=== PATIENT | female | born 1965 | race Caucasian/White ===

== ENCOUNTER 2019-11-14 09:30 | Inpatient (IN) | payer OTHER, SELFPAY ==
[~2019-11-14] VITALS: Ht 157.5 cm; Wt 90.9 kg
[2019-11-14] MEDS ORDERED: ceFAZolin SOD 2 GM in IV 1 EA IV ONE (09:45)
[2019-11-14] MEDS ORDERED: ONDANSETRON 4MG/2ML VIAL IV ONE ×2 (09:45→15:00)
[2019-11-14] MEDS ORDERED: BOOSTRIX/ADACEL VACCINE (DIPHTH/PERTUSS/ACELL/TETANUS) 0.5ML SYR IM ONE (09:45)
[2019-11-14] MEDS: MORPHINE 2 MG/ML 1ML VIAL (J2270) IV PRN ×2 (10:10→15:24)
[2019-11-14 10:26] LABS: BASO # 0.1 10^3/uL (0.0-0.2); BASO % 0.6 % (0.0-1.0); EOS # 0.1 10^3/uL (0.0-0.5); EOS % 1.2 % (0.0-3.0); HEMATOCRIT 42.4 % (36.0-47.0); HEMOGLOBIN 13.9 g/dl (12.0-15.5); LYMPH # 2.9 10^3/uL (1.5-5.0); LYMPH % 27.5 % (24.0-44.0); MEAN CORPUSCULAR HEMOGLOBIN 30.2 pg (27.0-33.0); MEAN CORPUSCULAR HGB CONC 32.8 g/dl (32.0-36.5); MONO # 0.5 10^3/uL (0.0-0.8); MONO % 4.3 % (0.0-5.0); NEUTROPHILS % 65.7 % (36.0-66.0); PLATELET COUNT, AUTOMATED 368 10^3/uL (150-450); RED BLOOD COUNT 4.61 10^6/uL (4.00-5.40); WHITE BLOOD COUNT 10.6 10^3/uL (4.0-10.0)
[2019-11-14] MEDS ORDERED: ISOVUE-370 76% 100ML VIAL As Ordered ONE (10:27)
[2019-11-14 10:36] LABS: INR 0.84; PROTHROMBIN TIME 11.7 SECONDS (12.5-14.3)
[2019-11-14 10:37] LABS: ALBUMIN 3.8 GM/DL (3.2-5.2); ALT/SGPT 27 U/L (12-78); AMYLASE 53 U/L (25-115); BILIRUBIN,DIRECT < 0.1 MG/DL (0.0-0.2); BILIRUBIN,TOTAL 0.2 MG/DL (0.2-1.0); LIPASE 110 U/L (73-393)
[2019-11-14 10:37] LABS: PARTIAL THROMBOPLASTIN TIME 23.5 SECONDS (24.2-38.5)
[2019-11-14 10:39] LABS: CK-MB VALUE MASS 1.9 NG/ML (<3.6); CPK CREATINE PHOSPHOKINASE 181 U/L (26-192); MB/CK RELATIVE INDEX 1.05 (< OR =4); TROPONIN I < 0.02 NG/ML (< 0.10)
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
[2019-11-14] MEDS ORDERED: SERT-138 PO (11:24)
[2019-11-14] MEDS ORDERED: METO50TA7 PO (11:24)
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
[2019-11-14] MEDS ORDERED: fentaNYL 100 MCG/2 ML INJECTION (J3010) As Ordered ONE (16:08)
[2019-11-14] MEDS ORDERED: MIDAZOLAM INJ 2MG/2ML VIAL (J2250 PER 1MG) As Ordered ONE (16:08)
[2019-11-14] MEDS ORDERED: dexameTHASONE 4 MG/ML 1ML VIAL (J1100 PER 1MG) As Ordered ONE (16:08)
[2019-11-14] MEDS ORDERED: ONDANSETRON 4MG/2ML VIAL As Ordered ONE (16:08)
[2019-11-14] MEDS ORDERED: propofoL 200 MG/20 ML VIAL As Ordered ONE (16:09)
[2019-11-14] MEDS ORDERED: LIDOCAINE 2% 100MG/5ML SDV (FOR ANES.) As Ordered ONE (16:09)
[2019-11-14] MEDS ORDERED: ceFAZolin 1GM VIAL (J0690 PER 500MG) As Ordered ONE ×2 (16:58→17:51)
[2019-11-14] MEDS ORDERED: METOCLOPRAMIDE INJ 10MG/2ML VIAL (J2765 PER 1) As Ordered ONE (17:03)
[2019-11-14] MEDS ORDERED: ceFAZolin 2 GM/D5W 50 ML IV BAG (J0690 PER 500MG) As Ordered ONE (17:38)
[2019-11-14] MEDS ORDERED: SEVOFLURANE INHAL SOLN 250 ML BTL As Ordered ONE (17:43)
[2019-11-14] MEDS ORDERED: HYDROmorphone HCL 2 MG/ML 1ML VIAL (J1170) As Ordered ONE (17:49)
[2019-11-14] MEDS ORDERED: LABETALOL 100MG/20ML VIAL As Ordered ONE (18:11)
[2019-11-14] MEDS ORDERED: BUPIVACAINE HCL 0.25% 30ML VIAL As Ordered ONE (18:25)
[2019-11-14] MEDS ORDERED: PERCOCET 5MG/325MG TAB PO PRN (20:00)
[2019-11-14] MEDS ORDERED: ONDANSETRON 4MG/2ML VIAL IV PRN (20:00)
[2019-11-14] MEDS ORDERED: LR 1,000 ML IV SCH ×2 (20:00)
[2019-11-14] MEDS ORDERED: fentaNYL 100 MCG/2 ML INJECTION (J3010) IV PRN (20:00)
[2019-11-14] MEDS ORDERED: METOCLOPRAMIDE INJ 10MG/2ML VIAL (J2765 PER 1) IV PRN (20:00)
[2019-11-14] MEDS ORDERED: PERCOCET 5MG/325MG TAB As Ordered ONE (20:16)
--- NOTE | 2019-11-14 20:33 | ECGEPIP ---
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
[2019-11-14 20:50] VITALS: BP 127/80
[2019-11-14 21:20] VITALS: BP 122/75
[2019-11-14 22:20] VITALS: BP 122/76
[2019-11-14 23:20] VITALS: BP 121/87
[2019-11-15] VITALS (8 sets, daily range): BP systolic 103–170; BP diastolic 57–96
[2019-11-15] MEDS: PERCOCET 5MG/325MG TAB PO PRN ×4 (06:03→21:09)
[2019-11-15] MEDS ORDERED: PERC5TAB12 PO (07:13)
[2019-11-15] MEDS ORDERED: ECOT81TA5 PO (07:13)
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
[2019-11-15] MEDS: NICOTINE 7 MG/24 HR TRANSDERMAL TD SCH (16:19)
[2019-11-15] MEDS ORDERED: SERTRALINE 100 MG TAB PO SCH (21:00)
[2019-11-15] MEDS ORDERED: METOPROLOL TARTRATE 100 MG TAB PO SCH (21:00)
[2019-11-16] MEDS: PERCOCET 5MG/325MG TAB PO PRN ×2 (06:42→10:49)
[2019-11-16 06:46] VITALS: BP 116/68
[2019-11-16] MEDS: NICOTINE 7 MG/24 HR TRANSDERMAL TD SCH (08:41)
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
--- NOTE | 2019-11-20 14:18 | REP ---
RIGHT ANKLE: 5-VIEWS, LIMITED STUDY HISTORY: Right ankle fracture. Intraoperative imaging. COMPARISON: Radiographs earlier this date. FINDINGS: A sequence of five [id number] fluoroscopically obtained spot radiographs of the right ankle document medial malleolar pin placement and anatomic alignment at the ankle joint. Calcaneus is not in the field of view. FLUROSCOPY TIME: 44 seconds reported. MTDD
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
== END 2019-11-16 12:50 | disposition home health service (06) | DRG 912 ==
LOC: EDBD 09:30 → M ED 09:30 → M ED INP 14:16 → M MS5PR 20:44
PROVIDERS: ADMIT Surgery; ATTEND Surgery
PROC: 0QSG04Z Reposition Right Tibia with Internal Fixation Device, Open Approach (ICD-10-PCS; principal; 2019-11-14 14:43)
PROC: 2W3SX1Z Immobilization of Right Foot using Splint (ICD-10-PCS; 2019-11-14 14:43)
DX: S82.54 Nondisplaced fracture of medial malleolus of right tibia (principal); S22.20XA Unspecified fracture of sternum, initial encounter for closed fracture; I10 Essential (primary) hypertension; S02.2XXA Fracture of nasal bones, initial encounter for closed fracture; S82.401A Unspecified fracture of shaft of right fibula, initial encounter for closed fracture; S52.614A Nondisplaced fracture of right ulna styloid process, initial encounter for closed fracture; F41.9 Anxiety disorder, unspecified; S92.061A Displaced intraarticular fracture of right calcaneus, initial encounter for closed fracture; V43.52XA Car driver injured in collision with other type car in traffic accident, initial encounter; Y92.410 Unspecified street and highway as the place of occurrence of the external cause; J34.2 Deviated nasal septum; Y99.8 Other external cause status; F17.210 Nicotine dependence, cigarettes, uncomplicated; Z79.899 Other long term (current) drug therapy; Z91.013 Allergy to seafood

== ENCOUNTER 2019-11-27 17:07 | Emergency (ER) | payer OTHER ==
[~2019-11-27] VITALS: Ht 157.5 cm; Wt 88.6 kg
[~2019-11-27 17:07] MED LIST: ECOT81TA5 PO; METO50TA7 PO; PERC5TAB12 PO; SERT-138 PO
[2019-11-27 17:08] VITALS: BP 140/74
--- NOTE | 2019-11-27 20:14 | REPVR ---
PROCEDURE INFORMATION: Exam: US Duplex Right Lower Extremity Veins, Limited Exam date and time: 11/27/2019 7:43 PM Age: 54 years old Clinical indication: Pain; Leg, lower; Right; Additional info: Pain/recent FX TECHNIQUE: Imaging protocol: Real-time Duplex ultrasound of the Right Lower Extremity with 2-D fraga scale, color Doppler flow and spectral waveform analysis with image documentation. Limited exam was focused on the right lower extremity veins. COMPARISON: No relevant prior studies available. FINDINGS: Right deep veins: Unremarkable. The common femoral, femoral and popliteal veins are patent without thrombus. Normal Doppler waveforms. Normal compressibility and/or augmentation response. Right superficial veins: Unremarkable. Saphenofemoral junction is patent without thrombus. Soft tissues: Unremarkable. IMPRESSION: No sonographic evidence of deep vein thrombosis. Electronically signed by: Saqib Juan On 11/27/2019 20:14:01 PM
== END 2019-11-27 20:40 | disposition home or self-care (01) ==
LOC: M ED 17:07
DX: R60.0 Localized edema (principal); S82.891D Other fracture of right lower leg, subsequent encounter for closed fracture with routine healing; V49.60XA Unspecified car occupant injured in collision with unspecified motor vehicles in traffic accident, initial encounter; I10 Essential (primary) hypertension; F41.9 Anxiety disorder, unspecified; F17.210 Nicotine dependence, cigarettes, uncomplicated; Z79.899 Other long term (current) drug therapy; Z79.82 Long term (current) use of aspirin; Z91.013 Allergy to seafood

== ENCOUNTER → 2019-12-01 | Outpatient (CLI) | payer OTHER ==
[~2019-12-01] MED LIST changes: +OXYC-517 PO; +XARE10TA PO
== END ==
LOC: M LABSMTC 09:51
PROVIDERS: ATTEND Anesthesiology
DX: Z01.812 Encounter for preprocedural laboratory examination (principal); Z20.828 Contact with and (suspected) exposure to other viral communicable diseases
CPT/HCPCS: C9803; U0003

== ENCOUNTER 2019-12-05 09:47 | Inpatient (IN) | payer OTHER, SELFPAY ==
[~2019-12-05] VITALS: Ht 157.5 cm; Wt 82.3 kg
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
[~2019-12-05 09:47] MED LIST changes: +LR 1,000 ML IV ONE; +MIDAZOLAM INJ 2MG/2ML VIAL (J2250 PER 1MG) IV SCH; -OXYC-517 PO; -XARE10TA PO; +fentaNYL 100 MCG/2 ML INJECTION (J3010) IV SCH
[2019-12-05] MEDS ORDERED: LIDOCAINE 2% 100MG/5ML SDV (FOR ANES.) As Ordered ONE (11:06)
[2019-12-05] MEDS ORDERED: fentaNYL 250 MCG/5 ML INJECTION (J3010) As Ordered ONE (11:06)
[2019-12-05] MEDS ORDERED: MIDAZOLAM INJ 2MG/2ML VIAL (J2250 PER 1MG) As Ordered ONE ×2 (11:06→11:41)
[2019-12-05] MEDS ORDERED: propofoL 200 MG/20 ML VIAL As Ordered ONE (11:06)
[2019-12-05] MEDS ORDERED: ONDANSETRON 4MG/2ML VIAL As Ordered ONE ×2 (11:07→17:04)
[2019-12-05] MEDS ORDERED: dexameTHASONE 4 MG/ML 1ML VIAL (J1100 PER 1MG) As Ordered ONE (11:07)
[2019-12-05] MEDS ORDERED: ceFAZolin 2 GM/D5W 50 ML IV BAG (J0690 PER 500MG) As Ordered ONE (11:32)
[2019-12-05] MEDS ORDERED: fentaNYL 100 MCG/2 ML INJECTION (J3010) As Ordered ONE (11:41)
[2019-12-05] MEDS ORDERED: ceFAZolin SOD 2 GM in IV 1 EA IV ONE (11:45)
[2019-12-05] MEDS ORDERED: ROCURONIUM BROMIDE 50 MG/5 ML VIAL As Ordered ONE ×2 (13:01→13:26)
[2019-12-05] MEDS ORDERED: ePHEDrine INJ 50 MG/ML VIAL As Ordered ONE (13:18)
[2019-12-05] MEDS ORDERED: LIDOCAINE 1% MDV 20ML VIAL ONE (13:23)
[2019-12-05] MEDS ORDERED: dexameTHASONE 10MG/1ML VIAL PRES.FREE (J1100 PER 1MG) ONE (13:23)
[2019-12-05] MEDS ORDERED: ROPIvacaine 0.5% 30ML INJECTION (J2795 PER 1MG) ONE (13:23)
[2019-12-05] MEDS ORDERED: ACETAMINOPHEN 1000MG 100ML IV BTL (OFIRMEV) (J0131 PER 10MG) As Ordered ONE (13:45)
[2019-12-05] MEDS ORDERED: HYDROmorphone HCL 2 MG/ML 1ML VIAL (J1170) As Ordered ONE (13:57)
[2019-12-05] MEDS ORDERED: METOCLOPRAMIDE INJ 10MG/2ML VIAL (J2765 PER 1) As Ordered ONE (14:06)
[2019-12-05] MEDS ORDERED: SUGAMMADEX SODIUM 500 MG/5 ML VIAL (BRIDION) As Ordered ONE (15:42)
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
[2019-12-05] MEDS ORDERED: oxyCODONE 5MG TAB As Ordered ONE (17:04)
[2019-12-05] MEDS ORDERED: HYDROMORPHONE HCL 0.5 MG/ 0.5 ML SYRINGE (J1170 PER 1) As Ordered ONE (17:28)
[2019-12-05] MEDS ORDERED: LR 1,000 ML IV SCH ×2 (17:30)
[2019-12-05] MEDS ORDERED: ONDANSETRON 4MG/2ML VIAL IV PRN ×2 (17:30)
[2019-12-05] MEDS ORDERED: fentaNYL 100 MCG/2 ML INJECTION (J3010) IV PRN (17:30)
[2019-12-05] MEDS: oxyCODONE 5MG TAB PO PRN ×2 (17:32→18:03)
[2019-12-05] MEDS: HYDROMORPHONE HCL 0.5 MG/ 0.5 ML SYRINGE (J1170 PER 1) IV PRN ×2 (17:33→17:40)
[2019-12-05] MEDS ORDERED: MORPHINE 2 MG/ML 1ML VIAL (J2270) IV PRN (17:45)
[2019-12-05] MEDS ORDERED: oxyCODONE 5MG TAB PO PRN ×2 (17:45)
[2019-12-05 18:30] VITALS: BP 122/78
[2019-12-05 20:00] VITALS: BP 117/75
[2019-12-05 21:00] VITALS: BP 151/87
[2019-12-05] MEDS ORDERED: SERTRALINE 100 MG TAB PO SCH (21:00)
[2019-12-05] MEDS ORDERED: METOPROLOL TART 50 MG TAB PO SCH (21:00)
[2019-12-05] MEDS: ceFAZolin SOD 2 GM in IV 1 EA IV SCH (21:32)
[2019-12-05] MEDS: ACETAMINOPHEN 500 MG TAB PO SCH (21:32)
[2019-12-05 21:33] VITALS: BP 151/87
[2019-12-06 02:00] VITALS: BP 123/73
[2019-12-06] MEDS: ACETAMINOPHEN 500 MG TAB PO SCH ×2 (05:11→14:29)
[2019-12-06] MEDS: ceFAZolin SOD 2 GM in IV 1 EA IV SCH ×2 (05:12→13:20)
[2019-12-06 05:14] VITALS: BP 118/67
[2019-12-06] MEDS ORDERED: OXYC-517 PO (07:57)
[2019-12-06] MEDS ORDERED: XARE10TA PO (07:57)
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
[2019-12-06 14:00] VITALS: BP 101/53
[2019-12-06] MEDS ORDERED: RIVAROXABAN 10 MG TAB (XARELTO) PO SCH (18:00)
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
== END 2019-12-06 14:50 | disposition home or self-care (01) | DRG 314 ==
LOC: M OR 09:47 → M MS5PR 18:15
PROVIDERS: ADMIT Orthopaedic Surgery; ATTEND Orthopaedic Surgery
PROC: 0QSL04Z Reposition Right Tarsal with Internal Fixation Device, Open Approach (ICD-10-PCS; principal; 2019-12-05 11:45)
DX: S92.011A Displaced fracture of body of right calcaneus, initial encounter for closed fracture (principal); I10 Essential (primary) hypertension; F17.210 Nicotine dependence, cigarettes, uncomplicated; Z91.013 Allergy to seafood; V87.9XXA Person injured in other specified (collision)(noncollision) transport accidents involving nonmotor vehicle (traffic), initial encounter; Y92.410 Unspecified street and highway as the place of occurrence of the external cause; Y99.9 Unspecified external cause status; Y93.9 Activity, unspecified

== ENCOUNTER → 2020-12-29 | Outpatient (CLI) | payer OTHER ==
[~2020-12-29] MED LIST changes: +ISOVUE-300 61% 50ML VIAL As Ordered ONE; +LIDOCAINE 1% MDV 20ML VIAL As Ordered ONE; -LR 1,000 ML IV ONE; -MIDAZOLAM INJ 2MG/2ML VIAL (J2250 PER 1MG) IV SCH; +OXYC-517 PO; +XARE10TA PO; -fentaNYL 100 MCG/2 ML INJECTION (J3010) IV SCH; +methylPREDNISolone SUSP 40MG/ML 1ML VIAL (DEPO MEDROL) As Ordered ONE
--- NOTE | 2020-12-30 08:19 | REP ---
INDICATION: DISPLACED FX. COMPARISON: None TECHNIQUE: The procedure was performed by IDALMIS Burkett, under the direct supervision of Dr. Biggs. The benefits and risks of the procedure were explained to the patient, and an informed consent was obtained. Directly prior to the start of the procedure, a formal time-out was completed in the procedure room. The right subtalar joint space was localized using fluoroscopic guidance. The skin was prepped and draped in a sterile fashion. Approximately 3 mL of 1% Lidocaine 10 mg/ml was used as a local anesthetic. Using fluoroscopic guidance, a #22 gauge spinal needle was inserted and advanced into the right subtalar joint space. Approximately 2 mL of Isovue 300 was injected to verify placement. Three mL of a solution containing 2 mL 1% lidocaine 10 mg/ml and 1 mL Depo-Medrol 40 mg/mL was injected into the joint space. The needle was removed and hemostasis was achieved. FINDINGS: The patient tolerated the procedure well and there were no immediate complications. IMPRESSION: 1. Technically successful subtalar joint injection. 0.1 minutes of fluoroscopy time was utilized for this procedure. Some fluoroscopic images are performed with last image hold technology. These images require no additional radiation. <Electronically signed by Irasema Patino > 12/29/20 1157 <Electronically signed by Odell Biggs > 12/30/20 [id number]
== END ==
LOC: M RADPRO 10:29
PROVIDERS: ATTEND Physician Assistant
DX: S92.011 Displaced fracture of body of right calcaneus (principal)
CPT/HCPCS: 20605; 77002; J1030; Q9967

== ENCOUNTER → 2023-02-22 | Outpatient (CLI) | payer OTHER ==
[~2023-02-22] MED LIST changes: -ISOVUE-300 61% 50ML VIAL As Ordered ONE; -LIDOCAINE 1% MDV 20ML VIAL As Ordered ONE; -methylPREDNISolone SUSP 40MG/ML 1ML VIAL (DEPO MEDROL) As Ordered ONE
== END ==
LOC: M WHC 08:30
PROVIDERS: ATTEND Nurse Practitioner Family
DX: Z12.31 Encounter for screening mammogram for malignant neoplasm of breast (principal)

== ENCOUNTER → 2023-02-22 | Outpatient (REF) | payer OTHER ==
[2023-02-22 15:42] LABS: CHLAMYDIA DNA AMPLIFICATION NEGATIVE (NEGATIVE); GC DNA AMPLIFICATION NEGATIVE (NEGATIVE)
== END ==
LOC: M SFHCWAGY 13:37
PROVIDERS: ATTEND Nurse Practitioner Family
DX: N94.10 Unspecified dyspareunia (principal); Z11.3 Encounter for screening for infections with a predominantly sexual mode of transmission; N73.9 Female pelvic inflammatory disease, unspecified; Z12.4 Encounter for screening for malignant neoplasm of cervix; Z11.51 Encounter for screening for human papillomavirus (HPV)

== ENCOUNTER → 2023-04-29 | Outpatient (CLI) | payer OTHER | LOC: M WHC 14:06 | PROVIDERS: ATTEND Nurse Practitioner Family | DX: R22.2 Localized swelling, mass and lump, trunk (principal) ==

== ENCOUNTER → 2024-02-27 | Outpatient (CLI) | payer OTHER | LOC: M WHC 10:26 | PROVIDERS: ATTEND Nurse Practitioner Family | DX: Z12.31 Encounter for screening mammogram for malignant neoplasm of breast (principal) ==

== ENCOUNTER → 2024-02-27 | Outpatient (REF) | payer OTHER | LOC: M SFHCWAGY 12:59 | PROVIDERS: ATTEND Nurse Practitioner Family | DX: R39.15 Urgency of urination (principal) ==